=== PATIENT | male | born 1995 | race Caucasian/White ===

== ENCOUNTER 2020-09-20 20:17 | Emergency (ER) | payer OTHER ==
[~2020-09-20] VITALS: Ht 180.3 cm; Wt 81.6 kg
[2020-09-20 20:20] VITALS: BP_SYST 145
[2020-09-20 21:00] VITALS: BP_SYST 129
[2020-09-20] MEDS ORDERED: ACETAMINOPHEN 500 MG TABLET PO ONE (21:00)
== END 2020-09-20 21:00 ==
LOC: SED 20:17
DX: M54.5 Low back pain (principal); Z79.899 Other long term (current) drug therapy; V49.49XA Driver injured in collision with other motor vehicles in traffic accident, initial encounter; Y93.89 Activity, other specified; Y92.89 Other specified places as the place of occurrence of the external cause; Y99.8 Other external cause status
CPT/HCPCS: 99283